=== PATIENT | female | born 1965 | race Hispanic/Latino ===

== ENCOUNTER 2024-06-02 15:44 | Outpatient (CLI) | payer OTHER, SELFPAY ==
--- NOTE | ~2024-06-02 | MM_ITS ---
EXAMINATION: MM screening [facility] BI w teressa HISTORY: Screening TECHNIQUE: Craniocaudal and mediolateral oblique 3-D tomosynthesis images were obtained and synthetic 2-D images were generated. CAD analysis was submitted and interpreted. COMPARISON: 03/24/2017 and dating back to 04/25/2013 BREAST PARENCHYMAL COMPOSITION: There are scattered areas of fibroglandular density. FINDINGS: Punctate calcifications detected bilaterally, left greater than right, stable and benign in appearance. Stable parenchymal pattern without suspicious microcalcifications, architectural distortion, discrete masses or significant asymmetry. IMPRESSION: 1. No mammographic evidence of malignancy. 2. Recommend routine screening mammography in one year. BI-RADS Category 2: Benign finding(s). Reviewed, dictated and finalized at location A. APPROVER
== END 2024-06-02 15:45 | disposition home or self-care (01) ==
LOC: ANHIMG 15:47
PROVIDERS: Visit Provider Physician Assistant
DX: Z12.31 Encounter for screening mammogram for malignant neoplasm of breast (principal)
CPT/HCPCS: 77063; 77067

== ENCOUNTER 2024-09-23 13:10 | Outpatient (CLI) | payer OTHER, SELFPAY ==
--- NOTE | ~2024-09-23 | MMUS_ITS ---
EXAMINATION: US breast RT complete, MM diagnostic dayanna RT w teressa HISTORY: Palpable right breast abnormality TECHNIQUE: Additional 3-D tomosynthesis images of the right breast were performed and synthetic 2-D i mages were generated. CAD analysis was submitted and interpreted. High resolution complete right ryan st ultrasound was performed. COMPARISON: No prior studies for comparison. BREAST PARENCHYMAL COMPOSITION: Not dense: There are scattered areas of fibroglandular density. FINDINGS: MAMMOGRAPHIC FINDINGS: There is a subareolar mass of the right breast. There are no suspicious calcifications or architectur al distortion. ULTRASOUND: Limited right breast ultrasound: At 9:00, 4 cm from the nipple there is a 5 mm cyst. In the subareola r location there is a 1.4 cm simple cyst. No suspicious masses to suggest malignancy. IMPRESSION: 1. No evidence for malignancy in the right breast. Benign findings. 2. Routine yearly screening mammogram and regular clinical breast examination are recommended. BI-RADS Category 2: Benign finding(s). Reviewed, dictated and finalized at location B. IMPRESSION: 1. No evidence for malignancy in the right breast. Benign findings. 2. Routine yearly screening mammogram and regular clinical breast examination a re recommended. BI-RADS Category 2: Benign finding(s).
--- OUTSIDE RECORDS SUMMARY | 2024-09-23 13:17 | XMS_ITS ---
Author Organization Formerly [facility], [facility]–[address] Address [address] [place] [address] Care Team Providers Care Tailings Man Name Role Phone Robyn Shen Primary Care Provider Chanel Bhatia Unavailable [phone] Allergies No Known Allergies REASON FOR VISIT f/u Medications Medication SIG (Take, Route, Frequency, Duration) Notes Start Date End Date Status lamoTRIgine 100 MG TAKE 1 TABLET BY MALKA TH EVERY DAY AT BEDTIME. DISCONTINUE IF RASH OCCURS. for 30 days Active QUEtiapine Fumarate 200 MG TAKE 1 TABLET BY MOUTH EVERY DAY AT BEDTIME for 30 Active Wellbutrin XL 150 MG 2 tablets in AM Ora lly Once a day for 30 days Active lamoTRIgine 100 MG 1 tablet Orally Once daily at bedtime (DC is rash) for 30 days Active QUEtiapine Fumarate 200 MG 1 tablet at b edtime Orally Once a day for 30 days Active Wellbutrin XL 150 MG 2 tablets in the mo rning Orally Once a day for 30 days Active Social History Tobacco Use: Social History Observation Description Date Details (start date - stop date) Never Smoker NA - NA Sex Assigned At : Social History Observation Description Sex Assigned At Female Dont use, Tobacco Use/Smoking Question Answer Notes Are you a nonsmoker PRAPARE Question Answer Notes Date Completed/Updated: 01/21/2023 What is your current housing situation? I do not have housing (staying with others, in a hotel, in a half-way, living outside on the street, on a beach, or in a park) Are you worried about losing your housing? 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 Check all that apply I do not have problems meeting my needs Has lack of transportation k ept you from medical appointments, meetings, work or from getting things needed for daily living? No How often do you see or talk to people that you care about and feel close to? (For example: talking to friends on the phone, visiting friends or family, going to evangelical or club meetings) 3 to 5 times a week How stressed are you? Stress is when someone feels tense, nervous, anxious, or can\t sleep at night because their mind is troubled Somewhat In the past year have you sp ent more than 2 nights in a row in a retirement, detention, usp center, or juvenile correctional facility? Yes What was your release date? 01/05/2023 Are you a refugee? No What country are you from? [place] Do you feel physically and e motionally safe where you currently live? Yes In the past year, have you b een afraid of your partner or ex-partner? No PRAPARE Score: 9 Section Notes: Reviewed PDMP Vital Signs Height 57 in 10/14/2023 Weight 150 lb 2 oz lbs 10/14/2023 BMI 32.48 kg/m2 10/14/2023 Blood pressure systolic 116 mm Hg 10/14/19 24 Blood pressure diastolic 82 mm Hg 024 Heart Rate 88 /min 10/14/2023 Oximetry 98 % 10/14/2023 Encounters Encounter Location Date Provider Diagnosis [address] [place] [address] 10/14/2023 Chanel Bhatia Nutritional counseling Z71.3 and Bipolar 1 disorder F31.9 Assessments Encounter Date Diagnosis (ICD Code) Assessment Notes Treatment Notes Treatment Clinical Notes Section Notes 10/14/2023 Nutritional counseling (ICD-10 - Z71.3) 10/14/2023 Bipolar 1 disorder (ICD-10 - F31.9) Antipsychotics education - reviewed side effects which may include metabolic syndrome, movement disorders (EPS/extrapyramidal symptoms & TD/Tardive dyskinesia) - potentially permanent movement abnormalities, NMS/neuroleptic malignant syndrome (high fever, very rigid muscles, and rapid heartbeat - potentially fatal), sedation, and cardiac rhythm abnormalities. 10/14/2023 Other Patient was edu cated on diagnosis and symptoms. Discussed the treatment plan, patient is agreeable and accepting of treatment plan. Patient denies further questions or concerns currently. Discussed sleep hygiene and caffeine intake. Encouraged to improve diet, get regular exercise, daily relaxation, and work on managing stress levels.Return to clinic 8 weeks.Labs are up to date. Encouraged counseling.The Patient/Guardian is aware of the need to contact the office or return for an earlier appointment if any problems or concerns arise. May also contact the 24-hour crisis hotline (R), refer to the closest emergency room or call 911 if new symptoms arise of existing symptoms worsen; the Patient/Guardian is aware that this would apply to symptoms such as: suicidal ideation, homicidal ideation, high risk behaviors, manic symptoms, psychotic symptoms, physical symptoms, or any other symptoms that may be dangerous to self or others.Greater than 50% of time spent on coordination and counseling where psychopharmacology as well as psychotherapeutic interventions were discussed along with review of treatments in the past.Patient/Guardian was educated about treatments including benefits and risks, alternatives, potential medication side effects, black box warning, and risks of failure if not treated. The Patient/Guardian asked appropriate questions, appeared to understand the answers, and decided to accept the treatment and continue being followed.Discussed the importance of compliance with medications due to the risk of relapse of symptoms.Discussed the risks of taking psychotropic medication when combined with substance use/abuse and/or drinking alcohol. Plan Of Treatment Medication Medication Name Sig Start Date Stop Date Notes lamoTRIgine 100 MG 1 tablet Orally Once daily at bedtime (DC is rash) for 30 days QUEtiapine Fumarate 200 MG 1 tablet at b edtime Orally Once a day for 30 days Wellbutrin XL 150 MG 2 tablets in the mo rning Orally Once a day for 30 days Treatment Notes Assessment Notes Bipolar 1 disorder Antipsychotics education - reviewed side effects which may include metabolic syndrome, movement disorders (EPS/extrapyramidal symptoms & TD/Tardive dyskinesia) - potentially permanent movement abnormalities, NMS/neuroleptic malignant syndrome (high fever, very rigid muscles, and rapid heartbeat - potentially fatal), sedation, and cardiac rhythm abnormalities. Other Patient was educated on diagnosis and symptoms. Discussed the treatment plan, patient is agreeable and accepting of treatment plan. Patient denies further questions or concerns currently. Discussed sleep hygiene and caffeine intake. Encouraged to improve diet, get regular exercise, daily relaxation, and work on managing stress levels.Return to clinic 8 weeks.Labs are up to date. Encouraged counseling.The Patient/Guardian is aware of the need to contact the office or return for an earlier appointment if any problems or concerns arise. May also contact the 24-hour crisis hotline (R), refer to the closest emergency room or call 911 if new symptoms arise of existing symptoms worsen; the Patient/Guardian is aware that this would apply to symptoms such as: suicidal ideation, homicidal ideation, high risk behaviors, manic symptoms, psychotic symptoms, physical symptoms, or any other symptoms that may be dangerous to self or others.Greater than 50% of time spent on coordination and counseling where psychopharmacology as well as psychotherapeutic interventions were discussed along with review of treatments in the past.Patient/Guardian was educated about treatments including benefits and risks, alternatives, potential medication side effects, black box warning, and risks of failure if not treated. The Patient/Guardian asked appropriate questions, appeared to understand the answers, and decided to accept the treatment and continue being followed.Discussed the importance of compliance with medications due to the risk of relapse of symptoms.Discussed the risks of taking psychotropic medication when combined with substance use/abuse and/or drinking alcohol. 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 W as hospitalized N o.? D epression Screening: PHQ-9 L ittle interest or pleasure in doing things S everal days, F eeling down, depressed, or hopeless S everal days, T rouble falling or staying asleep, or sleeping too much N ot at all, F eeling tired or having little energy N ot at all, P oor appetite or overeating N ot at all, F eeling bad about yourself or that you are a failure, or have let yourself or your family down S everal days, T rouble concentrating on things, such as reading the newspaper or watching television S , M oving or speaking so slowly that other people could have noticed; or the opposite, being so fidgety or restless that you have been moving around a lot more than usual N ot at all, T houghts that you would be better off or of hurting yourself in some way N ot at all, T otal Score 4 , I nterpretation M inimal Depression. I ntervention D epression Screening Findings P ositive, F ollow-Up for Depression N o Referral necessary, patient involved in behavioral health treatment .. S creening: [place] Suicide Severity Rating Scale (LF) D o you want to initiate with S creener form, 1 . Wish to be : Have you wished you were or wished you could go to sleep and not wake up? N o, 2 . Suicidal Thoughts: Have you actually had any thoughts of killing yourself? N o, 6 . Suicide Behaviour: Have you ever done anything,started to do anything, or prepared to end your life? N o, I nterpretation: L ow Risk. P reventative Health and Wellness follow-up: . C SSRS Interpretation and Follow Up Plan: CSSRS Interpretation and Follow Up PlanCSSRS Interpretation and Follow Up PlanCSSRS Interpretation and Follow Up Plan. C onstitutional: Chief Complaint: Medication management HPI: Martina is a 58 y/o female that presents to the office today for her appt. She was last seen on 07/22/2023 at which time we continued Seroquel, Wellbutrin, and Lamictal. I am doing better. She got a new job working for [employer]. It is 6 minutes from her house, and it pays the bills. She is renting a place with a single mother and her daughter. She is looking for a new place of her own. Her roommate works nights and she likes to blare music. She is sleeping well. She is also drinking sleepy time tea with honey. Appetite is It is okay. She is no longer in therapy with Marisela as she got new insurance that she does not take. She has not heard from her ex-. Her oldest daughter friended her on FB and now they are talking a little bit. Her youngest daughter is now opening her messages. She has not responded. She denies any gabriella or SIB/SI/HI/AVH. No impulsivity or risky behavior. She admits that her depression is not every day anymore. She reports anxiety is sometimes but not very often. She is in contact with her parents. Her brother and sister have not talked to her in 4 years. P HQ-9 on 07/22/23 was 2. Today's PHQ-9 is 4.Previous Diagnosis: Depression, Bipolar DisorderGoals: Find a place of her own.Coping strategies: Watching TV. S ocial Activities/Hobbies: WorkingDrugs/ETOH/nicotine: DeniesTherapy: She is no longer in therapy. M edications effective: YesMedication Adherence: YesSide effects: DeniesPast medications: UnsureSleep: Sometimes I sleep good sometimes I wake up. She is also drinking sleepy time tea with honey.Appetite: It is okay. Depression: Sometimes, but not at much, I am working on it. A nxiety/Panic attacks: Sometimes but not very often. A nger/Irritability: Denies H allucinations/Paranoia: DeniesCurrent Suicidal ideation: DeniesPast suicidal ideation: DeniesHomicidal ideation: DeniesMedical concerns: Does not have PCPHospitalizations/medication changes by other providers: Hospitalized at [facility] in September 2022 for depression.Hx of multiple hospitalizationsSupport system: FriendsLabs: Up to date. * ROS: P sych ROS: Constitutional D enies. R espiratory D enies. C ardiovascular D enies. G I D enies. M usculoskeletal D enies. N eurological?Denies. * PSYCH ROS2: Admits E levated mood symptoms. A dmits m ood swings. T houghts of self harm D enies. D enies H omicidal thoughts. A dmits A nxiety. D enies A uditory/visual hallucinations. D enies D elusions. A dmits D epressed mood. A dmits D ifficulty sleeping. D enies L oss of appetite. A dmits?Stressors. D enies S ubstance abuse. D enies S uicidal thoughts. ? * Medical History: * Surgical History: c esarean section 20yrs * Hospitalization/Major Diagno stic Procedure: i npatient psychiatric hospitalization 2022 * Family History: M other: alive. 2 daughter(s) - healthy. . * Social History: P rimary Social History: L iving Arrangement L iving Arrangement: Independent Living Lives with friends (rent room),Is this a supportive environment? Yes .. A lcohol Use A lcohol Use Frequency: N ever. Illicit Substance Usage I llicit Substance Usage: N o. E mployment Status E mployment Status: E mployed [employer]. S ocial Determinants: P RAPARE D ate Completed/Updated: 0 01/21/2023, W hat is your current housing situation? I do not have housing (staying with others, in a hotel, in a half-way, living outside on the street, on a beach, or in a park), A re you worried about losing your housing? Y es, W hat is your current work situation? P art time or temporary work, I n the past year, have you or any family members you live with been unable to get any of the following when it was really needed? Check all that apply I do not have problems meeting my needs, H as lack of transportation kept you from medical appointments, meetings, work or from getting things needed for daily living? N o, H ow often do you see or talk to people that you care about and feel close to? (For example: talking to friends on the phone, visiting friends or family, going to evangelical or club meetings) 3 to 5 times a week, H ow stressed are you? Stress is when someone feels tense, nervous, anxious, or can\t sleep at night because their mind is troubled S omewhat, I n the past year have you spent more than 2 nights in a row in a retirement, detention, usp center, or juvenile correctional facility? Y es, W hat was your release date? 0 01/05/2023, A re you a refugee? N o, W hat country are you from[place], D o you feel physically and emotionally safe where you currently live? Y es, I n the past year, have you been afraid of your partner or ex-partner? N o, P RAPARE Score: 9 . T obacco Use: D ont use, Tobacco Use/Smoking A re you a n onsmoker. M iscellaneous: M ethod of learning P referred method of learning: D iscussion. R eviewed PDMP. * Medications: T akingQUEtiapine Fumarate 200 MG Tablet TAKE 1 TABLET BY MOUTH EVERY DAY AT BEDTIME lamoTRIgine 100 MG Tablet TAKE 1 TABLET BY MOUTH EVERY DAY AT BEDTIME. DISCONTINUE IF RASH OCCURS. Wellbutrin XL 150 MG Tablet Extended Release 24 Hour 2 tablets in AM Orally Once a day Medication List reviewed and reconciled with the patientTaking QUEtiapine Fumarate 200 MG Tablet TAKE 1 TABLET BY MOUTH EVERY DAY AT BEDTIME Taking lamoTRIgine 100 MG Tablet TAKE 1 TABLET BY MOUTH EVERY DAY AT BEDTIME. DISCONTINUE IF RASH OCCURS. Taking Wellbutrin XL 150 MG Tablet Extended Release 24 Hour 2 tablets in AM Orally Once a day Medication List reviewed and reconciled with the patient * Allergies: N .K.D.A.no[Allergies Verified] Objective: * Vitals: I nitials: krs, Wt:150 lb 2 oz, Ht: 57, BMI:32.48, BP:116/82, HR:88, Oxygen sat %:98, LMP: iza, Pain scale:0. * Examination: G eneral Examination: PSYCH: f ull range of affect/positive mood, good eye contact , speech clear , no auditory or visual hallucinations , alert, oriented x4 , cognitive function intact , cooperative with exam judgement and insight fair , appears stated age , normal gait , denies any current thoughts/plans of suidicial/homicidal ideation , No evidence of EPS or tardive dyskinesia. Mental Status Exam P rotective Factors C hildren, Coping Skills, Cultural/Latter Day Ideology, Denies Intent/Desire/Means. Assessment: * Assessment: 1. N utritional counseling - Z71.3 (Primary) 2 . B ipolar 1 disorder - F31.9 Plan: * Treatment: 2. O thers Notes: Patient was educated on diagnosis and symptoms. Discussed the treatment plan, patient is agreeable and accepting of treatment plan. Patient denies further questions or concerns currently. Discussed sleep hygiene and caffeine intake. Encouraged to improve diet, get regular exercise, daily relaxation, and work on managing stress levels.Return to clinic 8 weeks.Labs are up to date. Encouraged counseling.The Patient/Guardian is aware of the need to contact the office or return for an earlier appointment if any problems or concerns arise. May also contact the 24-hour crisis hotline ([facility]), refer to the closest emergency room or call 911 if new symptoms arise of existing symptoms worsen; the Patient/Guardian is aware that this would apply to symptoms such as: suicidal ideation, homicidal ideation, high risk behaviors, manic symptoms, psychotic symptoms, physical symptoms, or any other symptoms that may be dangerous to self or others.Greater than 50% of time spent on coordination and counseling where psychopharmacology as well as psychotherapeutic interventions were discussed along with review of treatments in the past.Patient/Guardian was educated about treatments including benefits and risks, alternatives, potential medication side effects, black box warning, and risks of failure if not treated. The Patient/Guardian asked appropriate questions, appeared to understand the answers, and decided to accept the treatment and continue being followed.Discussed the importance of compliance with medications due to the risk of relapse of symptoms.Discussed the risks of taking psychotropic medication when combined with substance use/abuse and/or drinking alcohol. * Procedure Codes: 3 008F BODY MASS INDEX [id number] MEDICAL NUTRITION, INDIV, [id number] TOBACCO NON-USER * Preventive Medicine: Counseling: C are goal follow-up plan: B ME management provided Y Dong castaneda Normal BMI Follow-up L ifmadelynyle education regarding diet. * Follow Up: 2 Months (Reason: Medication management - office visit, not telehealth) * * Sign off status: Completed true * Provider: Zaria Bhatia, MSN, PRECISION OPTICS TECHNICIAN-BC, PMHNP-BC Date: 0 10/14/2023 Generated for Poonam talamantes/Mandy/eTransmitting on: 0 09/23/2024 01:17 PM CDT History and Physical Notes * HPI (History of Present Illness) Category Sub-Category Detail Notes Category Not es Interim History Was hospitalized No Emergency room visit No Depression Screening PHQ-9 Little inte rest or pleasure in doing things: Several days Feeling down, depressed, or hopeless: Se veral days Trouble falling or staying asleep, or sl eeping too much: Not at all Feeling tired or having little energy: N ot at all Poor appetite or overeating: Not at all Feeling bad about yourself o r that you are a failure, or have let yourself or your family down: Several days Trouble concentrating on thi ngs, such as reading the newspaper or watching television: Several days Moving or speaking so slowly that other people could have noticed; or the opposite, being so fidgety or restless that you have been moving around a lot more than usual: Not at all Thoughts that you would be b beulah off or of hurting yourself in some way: Not at all Total Score: 4 Interpretation: Minimal Depression Intervention Depression Screening Findings: P ositive Follow-Up for Depression: No Referral necessary, patient involved in behavioral health treatment . Constitutional Chief Complaint: Medication management HPI: Martina is a 58 y/o female that presents to the office today for her appt. She was last seen on 07/22/2023 at which time we continued Seroquel, Wellbutrin, and Lamictal. I am doing better. She got a new job working for [employer]. It is 6 minutes from her house, and it pays the bills. She is renting a place with a single mother and her daughter. She is looking for a new place of her own. Her roommate works nights and she likes to blare music. She is sleeping well. She is also drinking sleepy time tea with honey. Appetite is It is okay. She is no longer in therapy with Marisela as she got new insurance that she does not take. She has not heard from her ex-. Her oldest daughter friended her on FB and now they are talking a little bit. Her youngest daughter is now opening her messages. She has not responded. She denies any gabriella or SIB/SI/HI/AVH. No impulsivity or risky behavior. She admits that her depression is not every day anymore. She reports anxiety is sometimes but not very often. She is in contact with her parents. Her brother and sister have not talked to her in 4 years. PHQ-9 on 07/22/23 was 2. Today's PHQ-9 is 4.Previous Diagnosis: Depression, Bipolar DisorderGoals: Find a place of her own.Coping strategies: Watching TV. Social Activities/Hobbies: WorkingDrugs/ETOH/nicotine: DeniesTherapy: She is no longer in therapy. Medications effective: YesMedication Adherence: YesSide effects: DeniesPast medications: UnsureSleep: Sometimes I sleep good sometimes I wake up. She is also drinking sleepy time tea with honey.Appetite: It is okay. Depression: Sometimes, but not at much, I am working on it. Anxiety/Panic attacks: Sometimes but not very often. Anger/Irritability: Denies Hallucinations/Paranoia: DeniesCurrent Suicidal ideation: DeniesPast suicidal ideation: DeniesHomicidal ideation: DeniesMedical concerns: Does not have PCPHospitalizations/medication changes by other providers: Hospitalized at [facility] in September 2022 for depression.Hx of multiple hospitalizationsSupport system: FriendsLabs: Up to date. Screening [place] Suicide Severity Rating Scale (LF) Do you want to initiate with: Screener form 1. Wish to be : Have you wished you were or wished you could go to sleep and not wake up?: No 2. Suicidal Thoughts: Have you actually had any thoughts of killing yourself?: No 6. Suicide Behavior Question: Have you ever done anything,started to do anything, or prepared to end your life?: No Interpretation:: Low Risk Preventative Health and Wellness follow-up . Examination Category Sub-Category Detail Notes Category Not es General Examination PSYCH: full range o f affect/positive mood, good eye contact , speech clear , no auditory or visual hallucinations , alert, oriented x4 , cognitive function intact , cooperative with exam judgement and insight fair , appears stated age , normal gait , denies any current thoughts/plans of suidicial/homicidal ideation , No evidence of EPS or tardive dyskinesia Mental Status Exam Protective Factors: Children, Coping Skills, Cultural/Latter Day Ideology, Denies Intent/Desire/Means
--- OUTSIDE RECORDS SUMMARY | 2024-09-23 13:17 | XMS_ITS | Continuity of Care Document ---
Author Organization [facility] Address [address] [place] [address] Phone Care Team Providers Care Radio Station Audio Engineer Name Role Phone Kathy Walker Unavailable Unavailable Medications Medication Instructions Dosage Effective Dates (start - stop) Status Comments Effexor XR 37.5 mg 24 hr Cap take 1 Capsule (37.5MG) by oral route every day with food 37.5 MG - Active replaces 75 mg rx trazodone 50 mg Tab take 1 Tablet (50MG) by ORAL route every bedtime after meals 50 MG - Active Procedures Procedure Date Periodontal Scaling & Root Planing, 4+ t eeth, per quadrant Periodontal Scaling & Root Planing, 4+ t eeth, per quadrant Oral hygiene instruction Comprehensive Oral Evaluation-New/Est Pt Intra-Oral - Complete Series Of Radiogra phic Images Periodontal Risk Assessment Oral Cancer Risk Assessment Dental Panoramic Radiographic Image Consult [facility] Caries Risk Assess & Doc High Risk Apr-0 Voided Encounter Periodontal Maintenance Certified Translation Or Sign-lang Svcs Online Dental Bitewings Radiographic, Four Imag es Periodic Oral Evaluation-Established Pt Perio Re-evaluation Treatment Plan Completed Pt To Be Place On Recall Resin one surface-anterior Fe Resin one surface-anterior Resin one surface-anterior Resin one surface-anterior Periodontal Scaling & Root Planing, 4+ t eeth, per quadrant Periodontal Scaling & Root Planing, 4+ t eeth, per quadrant Voided Encounter Periodontal Scaling & Root Planing, 4+ t eeth, per quadrant Periodontal Scaling And Root Planing- 1- 3 Teeth Per Quadrant Comprehensive Oral Evaluation-New/Est Pt Intra-Oral - Complete Series Of Radiogra phic Images Dental Panoramic Radiographic Image Resin Composite, 1 Surface, Posterior Ju Treatment Plan Completed Pt To Be Place On Recall Voided Encounter Resin Composite, 1 Surface, Posterior Ap r- Dental Bitewings Radiographic, Four Imag es Oral hygiene instruction Periodontal Maintenance Periodic Oral Evaluation-Established Pt Caries Risk Assess & Doc High Risk Aug--2017 Resin Composite, 2 Surfaces, Posterior F Caries Risk Assess & Doc High Risk Feb-2 -2017 Resin Composite, 1 Surface, Posterior Ap r--2016 Debridement, Full Mouth Oral hygiene instruction Comprehensive Oral Evaluation 7 Dental Bitewings Radiographic, Four Imag es Extraction erupted tooth or exposed root Periodont scaling & root planing, 4+ riley th, per qu Periodont scaling & root planing, 4+ riley th, per qu Periodic oral evaluation Periodont scaling & root planing, 4+ riley th, per qu Periodont scaling & root planing, 4+ riley th, per qu Dental Bitewings Radiographic, Four Imag es Dental prophylaxis adult Comprehensve oral evaluation Amalgam one surface Amalgam two surfaces Periodont scaling & root planing, 4+ riley th, per qu Local Anesthesia - Pain Control 013 Periodic oral evaluation Periodont scaling & root planing, 4+ riley th, per qu Local Anesthesia - Pain Control 013 Periodont scaling & root planing, 4+ riley th, per qu Local Anesthesia - Pain Control 013 Local Anesthesia - Pain Control 013 Periodont scaling & root planing, 4+ riley th, per qu Dental bitewings two films Dental prophylaxis adult Periodic oral evaluation IPI-OB-M/S OFFICE 45-50 MIN COLLECTION OF VENOUS BLOOD BY VENIPUNCTU RE OFFICE/OUTPATIENT VISIT, EST OFFICE/OUTPATIENT VISIT, EST [facility]/S OFFICE 45-50 MIN OFFICE/OUTPATIENT VISIT, EST [facility]-OB-M/S OFFICE 45-50 MIN PSYCHIATRIC DIAGNOSTIC INTERVIEW VILMA RAMÍREZ Voided Encounter IPI-OB-M/S OFFICE 45-50 MIN IPI-OB-M/S OFFICE 45-50 MIN IPI-OB-M/S OFFICE 45-50 MIN Comprehensive community support services , per 15 minutes OFFICE OUTPT EST 25 MIN Dental prophylaxis adult Topical fluor w/o prophy adult 11 Oral hygiene instruction OFFICE OUTPT EST 25 MIN Comprehensive community support services , per 15 minutes Comprehensve oral evaluation Dental bitewings four films Debridement, Full Mouth Oral hygiene instruction IPI-OB-M/S OFFICE 45-50 MIN Comprehensive community support services , per 15 minutes OFFICE/OUTPATIENT VISIT, EST FAMILY PSYCHOTHERAPY (CONJOINT PSYCHOTHE RAPY) (WITH PATIENT PRESENT) NONINVASIVE EAR OR PULSE OXI METRY FOR OXYGEN SATURATION; SINGLE DETERMINATION OFFICE OUTPT EST 25 MIN Comprehensive community support services , per 15 minutes Comprehensive community support services , per 15 minutes IPI-OB-M/S OFFICE 45-50 MIN IPI-OB-M/S OFFICE 45-50 MIN Comprehensive community support services , per 15 minutes Comprehensive community support services , per 15 minutes OFFICE OUTPT EST 25 MIN IPI-OB-M/S OFFICE 45-50 MIN IPI-OB-M/S OFFICE 45-50 MIN IPI-OB-M/S OFFICE 45-50 MIN IPI-OB-M/S OFFICE 45-50 MIN OFFICE/OUTPATIENT VISIT, EST COLLECTION OF VENOUS BLOOD BY VENIPUNCTU RE IPI-OB-M/S OFFICE 45-50 MIN FAMILY PSYCHOTHERAPY (CONJOINT PSYCHOTHE RAPY) (WITH PATIENT PRESENT) FAMILY PSYCHOTHERAPY (CONJOINT PSYCHOTHE RAPY) (WITH PATIENT PRESENT) OFFICE/OUTPATIENT VISIT, [facility] Voided Encounter IPI-OB-M/S OFFICE 45-50 MIN PSYCHIATRIC DIAGNOSTIC INTERVIEW EXAMINA TION IPI-OB-M/S OFFICE 45-50 MIN Advance Directives Directive Yes / No Effective Date File Name No Information Encounters Encounter Description Practice Location Reason(s) For Visit Diagnoses Date Provider Providers Copied on Encounter [facility] [address], [place], [place], [address] , [place] tel: [phone] [facility] Chronic periodontitis , generalized, moderateEncou nter for other specified prophylactic measures 5 Denise Chavez. [address], [place], [place], [address]. tel:[phone] [facility], [address], [place], [place], [address] , [place] tel: [phone] [facility] Encounter for dental exam and cleaning w abnormal findings 5 Denise Chavez. [address], [place], [place], [address]. tel:[phone] Referring Provider: Horacio Hall, [address], [place], [address] . tel:[phone] [facility], [address], [place], [place], [address] , [place] tel:[phone] [facility] No Information 5 Denise Chavez. [address], [place], [place], [address]. tel:[phone] Referring Provider: Aubree Kamara, [address], [place], [address] . tel:[phone] [facility], [address], [place], [place], [address] , [place] tel: [phone] [facility] Encounter for dental exam and cleaning w abnormal findings No Information Referring Provider: Horacio Hall, [address], [place], [address] . tel:[phone] [facility], [address], [place], [place], [address] , [place] tel:[phone] [facility] Encounter for dental exam and cleaning w abnormal findings No Information Referring Provider: Horacio Hall [address], [place], [address] . tel:[phone] [facility], [address], [place], [place], [address] , [place] tel:[phone] [facility] Encounter for dental exam and cleaning w abnormal findingsEncou nter for dental exam and cleaning w/o abnormal findings 1 No Information Referring Provider: Horacio Hall [address], [place], [address] . tel:[phone] [facility], [address], [place], [address] , [place] tel:[phone] [facility] Encounter for dental exam and cleaning w abnormal findings 1 No Information [facility], [address], [place], [place], [address] , [place] tel: [phone] [facility] Encounter for dental exam and cleaning w abnormal findings 1 No Information [facility], [address], [place], [place], [address] , [place] tel: [phone] [facility] Encounter for dental exam and cleaning w abnormal findings 1 No Information [facility], [address], [place], [address] , [place] tel: [phone] [facility] No Information 0 No Information [facility], [address], [place], [address] , [place] tel: [phone] [facility] Encounter for dental exam and cleaning w abnormal findings 0 No Information Referring Provider: Horacio Hall, [address], [place], [address] . tel:[phone] [facility], [address], [place], [address] , [place] tel: [phone] [facility] Encounter for dental exam and cleaning w abnormal findings 0 No Information Referring Provider: Horacio Hall, [address], [place], [address] . tel:[phone] [facility], [address], [place], [place], [address] , [place] tel: [phone] [facility] Encounter for dental exam and cleaning w abnormal findings 0 No Information Referring Provider: Horacio Hall [address], [place], [address] . tel:[phone] [facility], [address], [place], [place], [address] , [place] tel: [phone] [facility] Dental caries on smooth surface penetrating into dentinEncount er for dental exam and cleaning w/o abnormal findings 8 Arsenio Taylor. [address], [place], [place], [address]. tel:[phone] Referring Provider: Brandon Cesar, [address], [place], [address] . tel:[phone] [facility], [address], [place], [address] , [place] tel: [phone] [facility] No Information 8 No Information [facility], [address], [place], [place], [address] , [place] tel: [phone] [facility] Excessive attrition of teeth Sep- 0 8 No Information [facility], [address], [place], [place], [address] , [place] tel: [phone] [facility] Encounter for dental exam and cleaning w abnormal findingsChron ic periodontitis , localized, slight Mar-0 8 Sumit Blunt. [address], [place], [place], [address]. tel:[phone] Referring Provider: Merlene Arana, [address], [place], [address] . tel:[phone] [facility], [address], [place], [place], [address] , [place] tel: [phone] [facility] Dental caries, unspecified Fe 8 No Information [facility], [address], [place], [address] , [place] tel:[phone] [facility] Dental caries, unspecified Sep- 7 Leena Fine. [address], [place], [place], [address], [place]. tel:[phone] Referring Provider: Babatunde Stern, [address], [place], [address] . tel:[phone] [facility], [address], [place], [place], [address] , [place] tel: [phone] [facility] Encounter for dental exam and cleaning w abnormal findings Aug- 7 No Information [facility], [address], [place], [address] , [place] tel: [phone] [facility] Encounter for dental exam and cleaning w abnormal findings Aug-0 7 Leena Babatunde. [address], [place], [address], [place]. tel:[phone] Referring Provider: Babatunde Stern, [address], [place], [address] . tel:[phone] [facility], [address], [place], [address] , [place] tel: [phone] [facility] Dental examination October- 5 Leena Garciaele. [address], [place], [address], [place]. tel:[phone] Referring Provider: Babatunde Stern, [address], [place], [address] . tel:[phone] [facility], [address], [place], [address] , [place] tel: [phone] [facility] Dental examination Aug-3 0 5 No Information [facility], [address], [place], [place], [address] , [place] tel: [phone] [facility] Dental examination 5 No Information [facility], [address], [place], [address] , [place] tel: [phone] [facility] Dental examination 4 No Information [facility], [address], [place], [place], [address] , [place] tel: [phone] [facility] Dental examination 4 No Information [facility], [address], [place], [address] , [place] tel: [phone] [facility] Dental examination 3 No Information [facility], [address], [place], [address] , [place] tel: [phone] [facility] Dental examination 3 No Information [facility], [address], [place], [place], [address] , [place] tel: [phone] [facility] Dental examination 3 No Information [facility], [address], [place], [address] , [place] tel: [phone] [facility] Dental examination 3 No Information [facility], [address], [place], [address] , [place] tel: [phone] [facility] Dental examination 3 No Information [facility], [address], [place], [address] , [place] tel: [phone] [facility] Dental examination 2 No Information [facility], [address], [place], [place], [address] , [place] tel: [phone] [facility] No Information 2 No Information OFFICE/OUTPATI ENT VISIT, EST [facility], [address], [place], [place], [address] , [place] tel: [phone] [facility] medication (chief complaint) Major depressive affective disorder, recurrent episode, unspecified degree 2 Cornel Casisdy. [address], [place], [place], [address], [place]. tel:[phone] OFFICE/OUTPATI ENT VISIT, EST [facility], [address], [place], [place], [address] , [place] tel: [phone] [facility] depression (chief complaint) No Information 2 Cornel Cassidy. [address], [place], [place], [address], [place]. tel:[phone] [facility], [address], [place], [place], [address] , [place] tel: [phone] [facility] Bipolar disorder, unspecified 2 No Information OFFICE/OUTPATI ENT VISIT, EST [facility], [address], [place], [place], [address] , [place] tel: [phone] [facility] No Information 0 2 Cornel Cassidy. [address], [place], [place], [address], [place]. tel:[phone] [facility], [address], [place], [place], [address] , [place] tel: [phone] [facility] No Information 0 2 No Information [facility], [address], [place], [address] , [place] tel: [phone] [facility] Major depressive affective disorder, recurrent episode, unspecified degree 0 2 No Information [facility], [address], [place], [place], [address] , [place] tel: [phone] [facility] No Information 1 No Information [facility], [address], [place], [place], [address] , [place] tel: [phone] [facility] No Information 1 No Information [facility], [address], [place], [place], [address] , [place] tel: [phone] [facility] No Information 1 No Information [facility], [address], [place], [address] , [place] tel: [phone] [facility] No Information 0 1 No Information [facility], [address], [place], [place], [address] , [place] tel: [phone] [facility] No Information 1 No Information OFFICE OUTPT EST 25 MIN [facility], [address], [place], [place], [address] , [place] tel: [phone] [facility] rash (chief complaint)a llergies (chief complaint) No Information 1 Cornel Cassidy. [address], [place], [place], [address], [place]. tel:[phone] [facility], [address], [place], [place], [address] , [place] tel: [phone] [facility] Dental examination 1 No Information [facility], [address], [place], [address] , [place] tel: [phone] [facility] Overweight 1 Cornel Cassidy. [address], [place], [place], [address], [place]. tel:[phone] OFFICE OUTPT EST 25 MIN [facility], [address], [place], [place], [address] , [place] tel: [phone] [facility] rash (chief complaint)c ongestion (chief complaint) Chronic maxillary sinusitis 1 Cornel Cassidy. [address], [place], [address], [place]. tel:[phone] [facility], [address], [place], [address] , [place] tel: [phone] [facility] No Information No Information [facility], [address], [place], [place], [address] , [place] tel: [phone] [facility] Dental examination 1 No Information [facility], [address], [place], [address] , [place] tel: [phone] [facility] No Information No Information [facility], [address], [place], [place], [address] , [place] tel: [phone] [facility] No Information No Information OFFICE/OUTPATI ENT VISIT, EST [facility], [address], [place], [address] , [place] tel: [phone] [facility] pain (chief complaint)f ollow up on lab / diagnostic test (chief complaint) Unspecified site of sprain and strain Sep- 1 Cornel Cassidy. [address], [place], [place], [address], [place]. tel:[phone] FAMILY PSYCHOTHERAPY (CONJOINT PSYCHOTHERAPY) (WITH PATIENT PRESENT) [facility], [address], [place], [place], [address] , [place] tel: [phone] [facility] Other and unspecified bipolar disorders, other Apr-2 0 1 No Information OFFICE OUTPT EST 25 MIN [facility], [address], [place], [place], [address] , [place] tel: [phone] [facility] back pain (chief complaint)s hortness of breath (chief complaint)c ough-produc tive (chief complaint)f atigue (chief complaint)v aginal bumps (chief complaint) Chronic maxillary sinusitis Aug-2 1 Cornel Cassidy. [address], [place], [place], [address], [place]. tel:[phone] [facility], [address], [place], [place], [address] , [place] tel: [phone] [facility] No Information Mar-2 1 No Information [facility], [address], [place], [place], [address] , [place] tel: [phone] [facility] No Information Mar-1 1 No Information [facility], [address], [place], [place], [address] , [place] tel: [phone] [facility] No Information Mar- 1 No Information [facility], [address], [place], [place], [address] , [place] tel: [phone] [facility] No Information Mar-0 1 No Information [facility], [address], [place], [place], [address] , [place] tel: [phone] [facility] No Information Mar-0 1 No Information [facility], [address], [place], [place], [address] , [place] tel: [phone] [facility] No Information 1 No Information OFFICE OUTPT EST 25 MIN [facility], [address], [place], [place], [address] , [place] tel: [phone] [facility] cough (chief complaint)j oint pain (chief complaint) No Information 1 Cornel Cassidy. [address], [place], [place], [address], [place]. tel:[phone] [facility], [address], [place], [place], [address] , [place] tel: [phone] [facility] No Information 1 No Information [facility], [address], [place], [place], [address] , [place] tel: [phone] [facility] No Information 0 No Information [facility], [address], [place], [address] , [place] tel: [phone] [facility] No Information 0 No Information [facility], [address], [place], [address] , [place] tel: [phone] [facility] No Information 0 No Information OFFICE/OUTPATI ENT VISIT, EST [facility], [address], [place], [place], [address] , [place] tel: [phone] [facility] depression (chief complaint)a nxiety (chief complaint) Nonspecific abnormal toxicological findingsDepre ssive disorder, not elsewhere classified 0 Cornel Cassidy. [address], [place], [place], [address], [place]. tel:[phone] [facility], [address], [place], [place], [address] , [place] tel: [phone] [facility] No Information 0 No Information FAMILY PSYCHOTHERAPY (CONJOINT PSYCHOTHERAPY) (WITH PATIENT PRESENT) [facility], [address], [place], [address] , [place] tel: [phone] [facility] No Information 0 No Information FAMILY PSYCHOTHERAPY (CONJOINT PSYCHOTHERAPY) (WITH PATIENT PRESENT) [facility], [address], [place], [place], [address] , [place] tel: [phone] [facility] No Information 0 No Information OFFICE/OUTPATI ENT VISIT, NEW [facility], [address], [place], [place], [address] , [place] tel: [phone] [facility] depression (chief complaint) Depressive disorder, not elsewhere classified 0 Cornel Cassidy. [address], [place], [address], [place]. tel:[phone] [facility], [address], [place], [place], [address] , [place] tel: [phone] [facility] depression (chief complaint) Depressive disorder, not elsewhere classified 0 Cornel Cassidy. [address], [place], [address], [place]. tel:[phone] [facility], [address], [place], [address] , [place] tel: [phone] [facility] No Information 0 No Information [facility], [address], [place], [place], [address] , [place] tel: [phone] [facility] depression (chief complaint) No Information 0 No Information [facility], [address], [place], [place], [address] , [place] tel: [phone] [facility] Major depressive affective disorder, recurrent episode, unspecified degreeAdjustm ent disorder with anxiety 0 No Information [facility], [address], [place], [address] , [place] tel: [phone] Care Guidelines 1 No Information Shara tavarez, [address], [place], [address] , [place] tel: [phone] Care Guidelines 1 No Information Family History Family Member Type Diagnosis Age At Onset No Information Payers Payer name Insurance type Covered constitution party ID Kayode ramírez(s) Dariela Bolden [facility] [id number] Social History Type Description Quantity Date Captured Comments Sex Female Smoking Status No Information Chief Complaint And Reason For Visit No Information Reason For Referral Reason For Referral No Information Plan Of Treatment Date Type Action Status Goal ALT. Due on due Goal AST. Due on due Goal BMP fasting. Due on 010 due Goal TSH. Due on due Goal Lipid Panel. Due on 011 due Future Order: Lab Order T4, FREE (526), Appointment on: , Sent on: Sent Future Order: Lab Order TSH, 3RD GENERATION (895), Appointment on: , Sent on: Sent History Of Present Illness Encounter Date Complaint History Of Prese nt Illness No Information Functional Status Date Functional Assessmen t No Information Instructions Date Instruction Additional Infor mation No Information Assessments Type Assessment Date No Information Patient Care Teams Name Effective Dates (start - stop) Status Members No Information
--- OUTSIDE RECORDS SUMMARY | 2024-09-23 13:17 | XMS_ITS ---
Author Organization [facility] Address [address] [place] [address] Care Team Providers Care Career Information Specialist Name Role Phone Robyn Shen Primary Care Provider Chanel Bhatia Unavailable [phone] REASON FOR VISIT [facility] Social History Sex Assigned At : Social History Observation Description Sex Assigned At Female Encounters Encounter Location Date Provider Diagnosis [address] [place] [address] 10/13/2023 Chanel Bhatia Plan Of Treatment No Information Progress Notes * Tika SMARTB:11/1965 (58 yo F)Acc No.[id number]:10/13/2023 Patient: Logan MOODY Martina OSHEA :1965 A ge:58 Y S ex:Female Address:[address] [facility] [address] * true * Date: Generated for Poonam talamantes/Mandy/eTransmitting on: 0 09/23/2024 01:17 PM CDT
--- OUTSIDE RECORDS SUMMARY | 2024-09-23 13:17 | XMS_ITS | Referral Summary ---
Author Organization [facility] Address [address] [place] [id number] Care Team Providers Care Factory Maintenance Manager Name Role Phone No, Physician Primary Care Provider [phone] Encounters Date Type Department Care Team Description 07/16/2024 11:49 AM GROUND SUPPORT EQUIPMENT FITTER - 07/16/2024 3:58 PM GROUND SUPPORT EQUIPMENT FITTER Emergency [address] [address] Syncope, unspecified syncope type (Primary Dx) Discharge Disposition: Discharge to home or self care from Last 3 Months Allergies No known active allergies Medications nitrofurantoin monohydrate (MACROBID) 100 mg capsuleIndicatio ns:Urinary Tract/Genitourin gisele Infection Take 1 capsule (100 mg total) by mouth 2 (two) times a day 10 capsule 09/03/2022 Active Social History Tobacco Use Types Packs/Day Years Used Date Smoking Tobacco: Never Assessed Personal Safety Answer Date Recorded Have you ever been in or are you currently in a harmful physical or emotional relationship or is someone making you feel afraid or unsafe? Denies 07/16/2024 Comments Unknown Sex and Gender Information Value Date Recorded Sex Assigned at Not on file Legal Sex Female 6:35 PM GROUND SUPPORT EQUIPMENT FITTER Gender Identity Not on file Sexual Orientation Not on file Last Filed Vital Signs Vital Sign Reading Time Taken Comments Blood Pressure 152/88 07/16/2024 3:54 PM GROUND SUPPORT EQUIPMENT FITTER Pulse 90 07/16/2024 3:54 PM GROUND SUPPORT EQUIPMENT FITTER Temperature 37 C (98.6 F) 07/16/2024 9:50 AM GROUND SUPPORT EQUIPMENT FITTER Respiratory Rate 18 07/16/2024 3:54 PM GROUND SUPPORT EQUIPMENT FITTER Oxygen Saturation 100% 07/16/2024 3:54 PM GROUND SUPPORT EQUIPMENT FITTER Inhaled Oxygen Concentration - - Weight 63.5 kg (140 lb) 09/03/2022 4:08 PM CDT Height 154.9 cm (5' 1 ) 07/16/2024 9:50 AM GROUND SUPPORT EQUIPMENT FITTER Body Mass Index - - Plan of Treatment Not on file Procedures Procedure Name Priority Date/Time Associated Diagnosis Comments CT CHEST PE W CONTRAST ED 2:41 PM GROUND SUPPORT EQUIPMENT FITTER D-DIMER, QUANTITATIVE STAT 07/16/2024 1:46 PM GROUND SUPPORT EQUIPMENT FITTER TROPONIN T HIGH-SENSITIVITY 2-HOUR Timed 07/16/2024 1:46 PM GROUND SUPPORT EQUIPMENT FITTER XR CHEST 1 VIEW ED 07/16/2024 10:52 AM GROUND SUPPORT EQUIPMENT FITTER ECG 12-LEAD STAT 07/16/2024 10:26 AM GROUND SUPPORT EQUIPMENT FITTER EGFR STAT 07/16/2024 10:23 AM GROUND SUPPORT EQUIPMENT FITTER DIFFERENTIAL AUTO STAT 07/16/2024 10: 23 AM GROUND SUPPORT EQUIPMENT FITTER TROPONIN T HIGH-SENSITIVITY SERIES (BASELINE, 2HR, 4HR, 6HR) STAT 07/16/2024 10:23 AM GROUND SUPPORT EQUIPMENT FITTER COMPREHENSIVE METABOLIC PANEL STAT 07/16/2024 10:23 AM GROUND SUPPORT EQUIPMENT FITTER CBC WITH AUTO DIFFERENTIAL STAT 07/16/2024 10:23 AM GROUND SUPPORT EQUIPMENT FITTER INFLUENZA A/B, RSV, AND COVID-19 PCR STAT 07/16/2024 10:23 AM GROUND SUPPORT EQUIPMENT FITTER from Last 3 Months Results * CT Chest PE (CTA) W Contrast (07/16/2024 2:41 PM GROUND SUPPORT EQUIPMENT FITTER) Anatomical Region Laterality Modality Body N/A Computed Tomogra phy 07/16/2024 3:13 PM GROUND SUPPORT EQUIPMENT FITTER Narrative 07/16/2024 3:22 PM GROUND SUPPORT EQUIPMENT FITTER EXAM DESCRIPTION: CT CHEST PE (CTA) W CONTRAST REASON FOR STUDY: Pulmonary embolism (PE) suspected, high prob Pt reports syncopal episode today while working. Pt reports a co worker caught her so she did not fall. Pt reports she did not have breakfast today and just had some unsweetened tea. Pt reports this happened in the past and was told he BP was elevated. No known sx or ca TECHNIQUE: CT angiogram of the chest performed with intravenous contrast using helical scanning technique with dynamic intravenous contrast injection. Reconstructed coronal and sagittal MPR images reviewed. All images stored on PACS. 3D MIP images rendered on scanning unit and reviewed at time of interpretation. Automated exposure control was used as a dose optimization technique for this examination. CONTRAST TYPE/DOSE: 100mL of IOVERSOL 350 MG IODINE/ML INTRAVENOUS SYRINGE injected COMPARISON: 07/16/2024, 09/23/2010 FINDINGS: VASCULATURE: No CT evidence of pulmonary embolism. Normal size of the main pulmonary arteries. No aortic aneurysm or aortic dissection. LUNGS: Mild scattered subsegmental atelectasis in both lungs. No pulmonary parenchymal consolidation or pulmonary edema. No discrete pulmonary nodules. Tracheobronchial tree is within normal limits. PLEURA: No pleural effusion. No pneumothorax. MEDIASTINUM/CHERISE: No identified masses or lymphadenopathy. No supraclavicular lymphadenopathy. The esophagus is within normal limits. HEART: Heart size is normal with no pericardial effusion. AXILLA: No adenopathy. CHEST WALL: There is nodular masslike tissue in the right breast subareolar region measuring 14 x 13 x 13 mm, incompletely characterized on this examination. HARDWARE/LINES/TUBES: None. UPPER ABDOMEN: Small hiatal hernia. There is an indeterminate hypoattenuating region in the posterior right hepatic lobe which is incompletely characterized on this examination given phase of contrast spanning up to 17 mm at slice position 120. There is a hypoattenuating lesion in the anterosuperior spleen measuring 27 mm favored to reflect a benign etiology such as hemangioma/lymphangioma or pseudocyst. MUSCULOSKELETAL: No acute fractures or aggressive osseous lesions. IMPRESSION: 1. No CT evidence of pulmonary embolism. 2. Nodular masslike tissue in the right breast subareolar region measuring 14 x 13 x 13 mm, incompletely characterized on this examination. Clinical correlation is recommended. Dedicated breast imaging is recommended for further evaluation. THIS IS AN ELECTRONICALLY VERIFIED FINAL REPORT 07/16/2024 3:22 PM - Electronically signed by Crystal Anglin M.D. AT T: Report ID: [id number] Reading Location: [id number] Procedure Note Crystal Anglin MD - 07/16/2024 EXAM DESCRIPTION: CT CHEST PE (CTA) W CONTRAST REASON FOR STUDY: Pulmonary embolism (PE) suspected, high prob Pt reports syncopal episode today while working. Pt reports a co workercaught her so she did not fall. Pt reports she did not have breakfast today andjust had some unsweetened tea. Pt reports this happened in the past and wastold he BP was elevated. No known sx or ca TECHNIQUE: CT angiogram of the chest performed with intravenous contrastusing helical scanning technique with dynamic intravenous contrast injection. Reconstructed coronal and sagittal MPR images reviewed. All images storedon PACS. 3D MIP images rendered on scanning unit and reviewed at time of interpretation. Automated exposure control was used as a doseoptimization technique for this examination. CONTRAST TYPE/DOSE: 100mL of IOVERSOL 350 MG IODINE/ML INTRAVENOUSSYRINGE injected COMPARISON: 07/16/2024, 09/23/2010 FINDINGS: VASCULATURE: No CT evidence of pulmonary embolism. Normalsize of the main pulmonary arteries. No aortic aneurysm or aortic dissection. LUNGS: Mild scattered subsegmental atelectasis in both lungs. Nopulmonary parenchymal consolidation or pulmonary edema. No discrete pulmonarynodules. Tracheobronchial tree is within normal limits. PLEURA: No pleural effusion. No pneumothorax. MEDIASTINUM/CHERISE: No identified masses or lymphadenopathy. No supraclavicular lymphadenopathy. The esophagus is within normal limits. HEART: Heart size is normal with no pericardial effusion. AXILLA: No adenopathy. CHEST WALL: There is nodular masslike tissue in the right breastsubareolar region measuring 14 x 13 x 13 mm, incompletely characterized on this examination. HARDWARE/LINES/TUBES: None. UPPER ABDOMEN: Small hiatal hernia. There is an indeterminate hypoattenuating region in the posterior right hepatic lobe which is incompletely characterized on this examination given phase of contrast spanning up to 17 mm at slice position 120. There is a hypoattenuatinglesion in the anterosuperior spleen measuring 27 mm favored to reflect a benign etiology such as hemangioma/lymphangioma or pseudocyst. MUSCULOSKELETAL: No acute fractures or aggressive osseous lesions. IMPRESSION: 1. No CT evidence of pulmonary embolism. 2. Nodular masslike tissue in the right breast subareolar regionmeasuring 14 x 13 x 13 mm, incompletely characterized on this examination. Clinical correlation is recommended. Dedicated breast imaging is recommended for further evaluation. THIS IS AN ELECTRONICALLY VERIFIED FINAL REPORT 07/16/2024 3:22 PM - Electronically signed by Crystal Anglin M.D. AT T: Report ID: [id number] Reading Location: [place] [id number] [place] [address] [address] CT PROCEDURES Final Resu lt * Troponin T high-sensitivity 2-hour (07/16/2024 1:46 PM GROUND SUPPORT EQUIPMENT FITTER) Trop T hs <6 <=14 ng/L Comment: Interpretive Data For further hscTnT resources including the diagnostic algorithm and an aid in interpretation, copy and paste this link: https://nrl.testcatalog.org/show/hsTrop Current Interpretive Data last revised 2020. Trop T hs delta See Comment ng/L JOSE MANUEL HARE Comment:Inappropriate collec tion time to report a delta. Trop T hs pct delta See Comment % JOSE MANUEL Comment:Inappropriate collec tion time to report a delta. Trop T hs interp See Comment JOSE MANUEL HARE Comment:Inappropriate collec tion time to report a delta. Blood 07/16/2024 1:46 PM GROUND SUPPORT EQUIPMENT FITTER 07/16/2024 1:49 PM GROUND SUPPORT EQUIPMENT FITTER us [facility] LAB BLOOD ORDERABLES Final R esult JOSE MANUEL HARE [address] [facility] Department [place] [address] * (ABNORMAL) D-dimer, quantitative (07/16/2024 1:46 PM GROUND SUPPORT EQUIPMENT FITTER) D-Dimer 1,470(H) <=499 ng/mL FEU Comment: Interpretive data FDA approved the D-dimer, in conjunction with a low or moderate pretest probability score, to exclude venous thromboembolic events (VTE) (PE and DVT) in outpatients when the D-dimer result is < 500 ng/ml FEU. Evidence supports using an age-adjusted D-dimer cut-off for outpatients older than 50 (age x 10) to improve specificity without sacrificing sensitivity. Example: age 68, VTE cut-off 680 ng/ml FEU. References; Schouten HT et al. Brit Med J. 2013;346:f2492. Huma MARTINEZ et al. Annals Int Med. 2015;163:701-11. Current interpretive data was last revised on 2019. Blood 07/16/2024 1:46 PM GROUND SUPPORT EQUIPMENT FITTER 07/16/2024 1:49 PM GROUND SUPPORT EQUIPMENT FITTER us Natividad [facility] LAB BLOOD ORDERABLES Final R esult [facility] [address] [facility] Department [place] [address] * XR Chest 1 View (07/16/2024 10:52 AM GROUND SUPPORT EQUIPMENT FITTER) Anatomical Region Laterality Modality Body, Chest N/A Computed Radiogr aphy 07/16/2024 11:4 4 AM GROUND SUPPORT EQUIPMENT FITTER Narrative 07/16/2024 11:45 AM GROUND SUPPORT EQUIPMENT FITTER EXAM DESCRIPTION: XR CHEST 1 VIEW REASON FOR STUDY: syncope Brought in by ems c/o syncope at work. Lasting 10 seconds-caught by co worker. Yesterday started with headache-just not feeling good. Today no headache, throat feels dry. Ems glucose 135 sinus on EKG. TECHNIQUE: Single frontal radiographic view(s) of the chest. COMPARISON: Chest radiograph images without a report dated 09/23/2010. FINDINGS: There is no focal pneumonic consolidation, pleural effusion or pneumothorax. Prominence along the right hilar region is grossly similar when compared to the previous chest radiograph dated 09/23/2010. Degenerative changes in the shoulders. IMPRESSION: No focal pneumonic consolidation. THIS IS AN ELECTRONICALLY VERIFIED FINAL REPORT 07/16/2024 11:45 AM - Electronically signed by Hans TAVARES T: Report ID: [id number] Reading Location: [id number] Procedure Note Hans Hendrickson DO - 07/16/2024 EXAM DESCRIPTION: XR CHEST 1 VIEW REASON FOR STUDY: syncope Brought in by ems c/o syncope at work. Lasting 10 seconds-caught by co worker. Yesterday started with headache-just not feeling good. Today no headache, throat feels dry. Ems glucose 135 sinus on EKG. TECHNIQUE: Single frontal radiographic view(s) of the chest. COMPARISON: Chest radiograph images without a report dated 09/23/2010. FINDINGS: There is no focal pneumonic consolidation, pleural effusion or pneumothorax. Prominence along the right hilar region is grossly similarwhen compared to the previous chest radiograph dated 09/23/2010. Degenerative changes in the shoulders. IMPRESSION: No focal pneumonic consolidation. THIS IS AN ELECTRONICALLY VERIFIED FINAL REPORT 07/16/2024 11:45 AM - Electronically signed by Hans TAVARES T: Report ID: [id number] Reading Location: [id number] Nativid[facility] IMG XR PROCEDURES Final Resu lt * ECG 12 lead (07/16/2024 10:26 AM GROUND SUPPORT EQUIPMENT FITTER) Ventricular Rate EKG/Min 80 BPM [facility] Atrial Rate 80 BPM [facility] DE-Interval (MSEC) 130 ms [facility] QRS-Interval (MSEC) 74 ms [facility] QT-Interval (MSEC) 378 ms [facility] QTc 435 ms [facility] P [place] 50 degrees [facility] R [place] 45 degrees [facility] T [place] 52 degrees [facility] Diagnosis Normal sinus rhythm Normal ECG When compared with ECG of 03-SEP-2022 16:27, No significant change was found Confirmed by MARY ZHENG M.D. ([id number]) on 07/16/2024 8:08:16 PM [facility] 07/16/2024 10:2 6 AM GROUND SUPPORT EQUIPMENT FITTER 07/16/2024 8:08 PM GROUND SUPPORT EQUIPMENT FITTER us Natividad FIGUEREDO ECG ORDERABLES Final Result Performing Organization Address City/[facility]/ZIP Co de Phone Number [facility] * Troponin T high-sensitivity series (baseline, 2hr, 4hr, 6hr) (07/16/2024 10:23 AM GROUND SUPPORT EQUIPMENT FITTER) Trop T hs <6 <=14 ng/L Comment: Interpretive Data For further hscTnT resources including the diagnostic algorithm and an aid in interpretation, copy and paste this link: https://nrl.testcatalog.org/show/hsTrop Current Interpretive Data last revised 2020. Blood 07/16/2024 10:2 3 AM GROUND SUPPORT EQUIPMENT FITTER 07/16/2024 10:26 AM GROUND SUPPORT EQUIPMENT FITTER Natividad FIGUER[facility]O LAB BLOOD ORDERABLES Final R esult Performing Organization Address City/[facility] Co de Phone Number JOSE MANUEL [address] [facility] Department [place] [address] * Influenza A/B, RSV, and COVID-19 PCR Nasopharyngeal (07/16/2024 10:23 AM GROUND SUPPORT EQUIPMENT FITTER) [facility] COVID-19 RNA Negative Negative Influenza A RNA Negative Negative [facility] Influenza B RNA Negative Negative [facility] RSV RNA Negative Negative [facility] Comment: Interpretive data: Testing performed by [facility]. This test is performed using the Coaxis Xpert Xpress CoV-2/Flu/RSV plus assay. This is a multiplex, real-time reverse transcriptase PCR assay intended for the qualitative detection of nucleic acid from SARS-CoV-2, influenza A, influenza B, and respiratory syncytial virus. This assay has been cleared by the [place] Food and Drug administration. The performance characteristics have been verified by the [facility]. Results must be considered in the clinical context, and a negative result does not rule out infection. Interpretive Data last revised 2023 Nasopharyngeal 07/16/2024 10 :23 AM GROUND SUPPORT EQUIPMENT FITTER 07/16/2024 10:26 AM GROUND SUPPORT EQUIPMENT FITTER Narrative JOSE MANUEL - 07/16/2024 11:24 AM GROUND SUPPORT EQUIPMENT FITTER Is the Patient experiencing symptoms consistent with COVID?->Yes [facility] LAB MICROBIOLOGY - GENERAL O RDERABLES Final Result Performing Organization Address [facility] Co de Phone Number JOSE MANUEL [address] [place] [address] * (ABNORMAL) eGFR (07/16/2024 10:23 AM GROUND SUPPORT EQUIPMENT FITTER) eGFR 45(L) >=60 mL/min/1. 73 m2 Comment: Interpretive Data Reference Interval Normal >/= 90 mL/min/1.73m2 Mildly decreased* 60 - 89 mL/min/1.73m2 Mildly to moderately decreased 45 - 59 mL/min/1.73m2 Moderately to severely decreased 30 - 44 mL/min/1.73m2 Severely decreased 15 - 29 mL/min/1.73m2 Kidney Failure < 15 mL/min/1.73m2 *Relative to young adult level Estimated glomerular filtration rate is determined by the 2020 CKD-EPI equation recommended by the National Kidney Foundation (A Unifying Approach to GFR Estimation: Recommendations of the NKF-ASK Task Force on Reassessing the Inclusion of Race in Diagnosing Kidney Disease, JASN 2020). The CKD-EPI equation should not be used for patients with unstable renal function and has not been validated in children and those over 70. Current interpretive data was last reviewed 2021. Blood 07/16/2024 10:2 3 AM GROUND SUPPORT EQUIPMENT FITTER 07/16/2024 10:26 AM GROUND SUPPORT EQUIPMENT FITTER Natividad FIG[facility] LAB BLOOD ORDERABLES Final R esult Performing Organization Address [facility] Co de Phone Number JOSE MANUEL [address] [place] [address] * (ABNORMAL) Differential, auto (07/16/2024 10:23 AM GROUND SUPPORT EQUIPMENT FITTER) Neutrophil abs 7.9(H) 1.5 - 6.5 K/cumm Imm gran abs 0.0 0.0 - 0.1 K/cumm [facility] Lymphocyte abs 0.9 0.8 - 3.3 K/cumm [facility] Monocyte abs 0.6 0.2 - 0.8 K/cumm [facility] Eosinophil abs 0.0 0.0 - 0.5 K/cumm [facility] Basophil abs 0.0 0.0 - 0.1 K/cumm [facility] Neutrophil pct 83.7 % [facility] Comment: Interpretive Data Percent cell count reference ranges are not reported, since discordance with absolute values may lead to misinterpretation of CBC data. Current Interpretive Data was last revised on 2017. Imm gran pct 0.3 % [facility] Comment: Interpretive Data Percent cell count reference ranges are not reported, since discordance with absolute values may lead to misinterpretation of CBC data. Current Interpretive Data was last revised on 2017. Lymphocyte pct 9.8 % [facility] Comment: Interpretive Data Percent cell count reference ranges are not reported, since discordance with absolute values may lead to misinterpretation of CBC data. Current Interpretive Data was last revised on 2017. Monocyte pct 5.9 % [facility] Comment: Interpretive Data Percent cell count reference ranges are not reported, since discordance with absolute values may lead to misinterpretation of CBC data. Current Interpretive Data was last revised on 2017. Eosinophil pct 0.0 % [facility] Comment: Interpretive Data Percent cell count reference ranges are not reported, since discordance with absolute values may lead to misinterpretation of CBC data. Current Interpretive Data was last revised on 2017. Basophil pct 0.3 % [facility] Comment: Interpretive Data Percent cell count reference ranges are not reported, since discordance with absolute values may lead to misinterpretation of CBC data. Current Interpretive Data was last revised on 2017. Blood 07/16/2024 10:2 3 AM GROUND SUPPORT EQUIPMENT FITTER 07/16/2024 10:26 AM GROUND SUPPORT EQUIPMENT FITTER us Nativid[facility] LAB BLOOD ORDERABLES Final R esult JOSE MANUEL [address] [facility] Department [place] [address] * CBC with auto differential (07/16/2024 10:23 AM GROUND SUPPORT EQUIPMENT FITTER) [facility] WBC 9.5 3.8 - 9.9 K/cumm Hgb 13.3 11.9 - 15.5 g/dL [facility] Hct 40.2 35.6 - 45.5 % [facility] Plt 260 150 - 400 K/cumm [facility] MPV 9.7 9.1 - 12.3 fL [facility] RBC 4.63 3.90 - 5.20 M/cumm [facility] MCV 86.8 81.3 - 96.4 fL [facility] MCH 28.7 27.1 - 33.3 pg [facility] MCHC 33.1 32.3 - 35.7 g/dL [facility] RDW CV 13.1 11.1 - 14.9 % [facility] RDW SD 41.1 35.7 - 48.1 fL [facility] NRBC abs 0.00 0.00 - 0.01 K/cumm [facility] Blood 07/16/2024 10:2 3 AM GROUND SUPPORT EQUIPMENT FITTER 07/16/2024 10:26 AM GROUND SUPPORT EQUIPMENT FITTER us Natividad FIGUER[facility] LAB BLOOD ORDERABLES Final R esult [facility] [address] [facility] [place] [address] * (ABNORMAL) Comprehensive metabolic panel (07/16/2024 10:23 AM GROUND SUPPORT EQUIPMENT FITTER) [facility] Sodium 132(L) 135 - 145 mmol/L Potassium, pl 3.7 3.3 - 4.9 mmol/L [facility] Chloride 97 97 - 110 mmol/L [facility] CO2 25 22 - 32 mmol/L [facility] Anion gap 10 2 - 15 mmol/L [facility] BUN 18 6 - 25 mg/dL [facility] Creatinine 1.39(H) 0.60 - 1.10 mg/dL [facility] Glucose 104 70 - 199 mg/dL [facility] Comment: Interpretive Data Fasting glucose >/= 126 mg/dl is diagnostic for diabetes. Fasting is defined as no caloric intake for at least 8 hours. Fasting glucose between 100 mg/dl to 125 mg/dl is diagnostic of prediabetes. In a patient with classic symptoms of hyperglycemia or hyperglycemic crisis, a random glucose >/= 200 mg/dl is diagnostic for diabetes. In the absence of unequivocal hyperglycemia, results should be confirmed by repeat testing. The classification and Diagnosis of Diabetes Diabetes Care 2021; 46: S19-S40. Current interpretive data was last revised 2022. Calcium 8.9 8.5 - 10.3 mg/dL [facility] Bilirubin, total 0.6 0.1 - 1.2 mg/dL [facility] Protein, pl 7.8 6.5 - 8.5 g/dL [facility] Albumin 4.0 3.5 - 5.0 g/dL [facility] Alk phos 74 40 - 130 Units/L [facility] ALT 21 7 - 45 Units/L [facility] AST 23 10 - 45 Units/L [facility] Blood 07/16/2024 10:2 3 AM GROUND SUPPORT EQUIPMENT FITTER 07/16/2024 10:26 AM GROUND SUPPORT EQUIPMENT FITTER us Natividad [facility] LAB BLOOD ORDERABLES Final R esult JOSE MANUEL [address] [facility] Department [place] [address] from Last 3 Months Insurance [facility] PL[facility] Care Teams Factory Maintenance Manager Relationship Specialty Start Date End Date No, Physician PCP - General 09/03/22
--- OUTSIDE RECORDS SUMMARY | 2024-09-23 13:17 | XMS_ITS | Clinical Summary ---
Author Organization [facility] Address [address] [place] [id number] Care Team Providers Care Surgery Aide Name Role Phone No, Physician Primary Care Provider Allergies No known active allergies Medications nitrofurantoin monohydrate (MACROBID) 100 mg capsuleIndicatio ns:Urinary Tract/Genitourin gisele Infection Take 1 capsule (100 mg total) by mouth 2 (two) times a day 10 capsule 09/03/2022 Active Encounters Date Type Department Care Team Description 07/16/2024 11:49 AM INSTALLMENT LOAN COLLECTOR - 07/16/2024 3:58 PM INSTALLMENT LOAN COLLECTOR Emergency [address] [phone] Syncope, unspecified syncope type (Primary Dx) Discharge Disposition: Discharge to home or self care from Last 3 Months Social History Tobacco Use Types Packs/Day Years [...] on file Legal Sex Female 6:35 PM INSTALLMENT LOAN COLLECTOR Gender Identity Not on file Sexual Orientation Not on file Last Filed Vital Signs Vital Sign Reading Time Taken Comments Blood Pressure 152/88 07/16/2024 3:54 PM INSTALLMENT LOAN COLLECTOR Pulse 90 07/16/2024 3:54 PM INSTALLMENT LOAN COLLECTOR Temperature 37 C (98.6 F) 07/16/2024 9:50 AM INSTALLMENT LOAN COLLECTOR Respiratory Rate 18 07/16/2024 3:54 PM INSTALLMENT LOAN COLLECTOR Oxygen Saturation 100% 07/16/2024 3:54 PM INSTALLMENT LOAN COLLECTOR Inhaled Oxygen Concentration - - Weight 63.5 kg (140 lb) 09/03/2022 4:08 PM CDT Height 154.9 cm (5' 1 ) 07/16/2024 9:50 AM INSTALLMENT LOAN COLLECTOR Body Mass Index - - Plan of Treatment Health Maintenance Due Date Last Done Comments Cervical Cancer Screening 1965 Colon Cancer Screening-Colonoscopy 1967 Depression Screening 1967 Hepatitis C Screening 1967 DTaP/Tdap/Td Vaccine (1 - Tdap) 08/11/1978 Hepatitis B Screening 08/11/1985 Regular Well Visit/Exam 18-64 08/11/1985 Zoster Vaccine (1 of 2) 08/11/2017 Breast Cancer Screening-Mammogram 08/08/2021 08/08/2020 Covid-19 Vaccine (2023-2 5 season) 2024 03/04/2023, 12/17/2020, 11/19/2020 Influenza Vaccine (Season Ended) 2025 03/04/2023, 02/10/2014 Pneumococcal vaccine <65 Aged Out No longer eligible based on patient's age to complete this topic Procedures Procedure Name Priority Date/Time Associated Diagnosis Comments CT CHEST PE W CONTRAST ED 2:41 PM INSTALLMENT LOAN COLLECTOR D-DIMER, QUANTITATIVE STAT 07/16/2024 1:46 PM INSTALLMENT LOAN COLLECTOR TROPONIN T HIGH-SENSITIVITY 2-HOUR Timed 07/16/2024 1:46 PM INSTALLMENT LOAN COLLECTOR XR CHEST 1 VIEW ED 07/16/2024 10:52 AM INSTALLMENT LOAN COLLECTOR ECG 12-LEAD STAT 07/16/2024 10:26 AM INSTALLMENT LOAN COLLECTOR EGFR STAT 07/16/2024 10:23 AM INSTALLMENT LOAN COLLECTOR DIFFERENTIAL AUTO STAT 07/16/2024 10: 23 AM INSTALLMENT LOAN COLLECTOR TROPONIN T HIGH-SENSITIVITY SERIES (BASELINE, 2HR, 4HR, 6HR) STAT 07/16/2024 10:23 AM INSTALLMENT LOAN COLLECTOR COMPREHENSIVE METABOLIC PANEL STAT 07/16/2024 10:23 AM INSTALLMENT LOAN COLLECTOR CBC WITH AUTO DIFFERENTIAL STAT 07/16/2024 10:23 AM INSTALLMENT LOAN COLLECTOR INFLUENZA A/B, RSV, AND COVID-19 PCR STAT 07/16/2024 10:23 AM INSTALLMENT LOAN COLLECTOR from Last 3 Months Results * CT Chest PE (CTA) W Contrast (07/16/2024 2:41 PM INSTALLMENT LOAN COLLECTOR) Anatomical Region Laterality Modality Body N/A Computed Tomogra phy 07/16/2024 3:13 PM INSTALLMENT LOAN COLLECTOR Narrative 07/16/2024 3:22 PM INSTALLMENT LOAN COLLECTOR EXAM DESCRIPTION: CT CHEST PE (CTA) W [...] Crystal Anglin M.D. AT T: Report ID: [id number] Reading Location: [place] [address] Procedure Note Crystal Anglin MD - 07/16/2024 [...] Crystal Anglin M.D. AT T: Report ID: [id number] Reading Location: [place] [address] [address] PROCEDURES Final Resu lt * Troponin T high-sensitivity 2-hour (07/16/2024 1:46 PM INSTALLMENT LOAN COLLECTOR) Trop T hs <6 <=14 ng/L Comment: Interpretive Data For further hscTnT resources including the diagnostic algorithm and an aid in interpretation, copy and paste this link: https://nrl.testcatalog.org/show/hsTrop Current Interpretive Data last revised 2020. Trop T hs delta See Comment ng/L JOSE MANUEL HARE Comment:Inappropriate collec tion time to report a delta. Trop T hs pct delta See Comment % JOSE MANUEL HARE Comment:Inappropriate collec tion time to report a delta. Trop T hs interp See Comment JOSE MANUEL Comment:Inappropriate collec tion time to report a delta. Blood 07/16/2024 1:46 PM INSTALLMENT LOAN COLLECTOR 07/16/2024 1:49 PM INSTALLMENT LOAN COLLECTOR Natividad FIGUEREDO LAB BLOOD ORDERABLES Final R esult Performing Organization Address [facility] Co de Phone Number JOSE MANUEL [address] [place] [address] * (ABNORMAL) D-dimer, quantitative (07/16/2024 1:46 PM INSTALLMENT LOAN COLLECTOR) D-Dimer 1,470(H) <=499 ng/mL FEU Comment: Interpretive [...] et al. Brit Med J. 2013;346:f2492. Huma et al. Annals Int Med. 2015;163:701-11. Current interpretive data was last revised on 2019. Blood 07/16/2024 1:46 PM INSTALLMENT LOAN COLLECTOR 07/16/2024 1:49 PM INSTALLMENT LOAN COLLECTOR us Natividad FIGUEREDO LAB BLOOD ORDERABLES Final R esult Performing Organization Address [facility] Co de Phone Number JOSE MANUEL [address] [place] [address] * XR Chest 1 View (07/16/2024 10:52 AM INSTALLMENT LOAN COLLECTOR) Anatomical Region Laterality Modality Body, Chest N/A Computed Radiogr aphy 07/16/2024 11:4 4 AM INSTALLMENT LOAN COLLECTOR Narrative 07/16/2024 11:45 AM INSTALLMENT LOAN COLLECTOR EXAM DESCRIPTION: XR CHEST 1 VIEW REASON [...] 11:45 AM - Electronically signed by Hans Hendrickson D.O. AP T: Report ID: [id number] Reading Location: [id number] Procedure Note Hans Hendrickson, DO - 07/16/2024 EXAM DESCRIPTION: XR CHEST [...] 11:45 AM - Electronically signed by Hans Hendrickson D.O. AP T: Report ID: [id number] Reading Location: [id number] us Natividad FIGUEREDO IMG XR PROCEDURES Final Resu lt * ECG 12 lead (07/16/2024 10:26 AM INSTALLMENT LOAN COLLECTOR) [facility] Ventricular Rate EKG/Min 80 BPM [facility] Atrial Rate 80 BPM [facility] PA-Interval (MSEC) 130 ms [facility] QRS-Interval (MSEC) 74 ms [facility] QT-Interval (MSEC) 378 ms [facility] QTc 435 ms [facility] P Lismore 50 degrees [facility] R [place]ismore 45 degrees [facility] T Lismore 52 degrees [facility] Diagnosis Normal sinus rhythm Normal ECG When compared with ECG of 03-SEP-2022 16:27, No significant change was found Confirmed by MARY ZHENG M.D. ([id number]) on 07/16/2024 8:08:16 PM [facility] 07/16/2024 10:2 6 AM INSTALLMENT LOAN COLLECTOR 07/16/2024 8:08 PM INSTALLMENT LOAN COLLECTOR Natividad FIGUEREDO ECG ORDERABLES Final Result Performing Organization Address [facility] Co de Phone Number [facility] * Troponin T high-sensitivity series (baseline, 2hr, 4hr, 6hr) (07/16/2024 10:23 AM INSTALLMENT LOAN COLLECTOR) [facility] Trop T hs <6 <=14 ng/L Comment: Interpretive Data For further hscTnT resources including the diagnostic algorithm and an aid in interpretation, copy and paste this link: https://nrl.testcatalog.org/show/hsTrop Current Interpretive Data last revised 2020. Blood 07/16/2024 10:2 3 AM INSTALLMENT LOAN COLLECTOR 07/16/2024 10:26 AM INSTALLMENT LOAN COLLECTOR us Natividad FIGUEREDO LAB BLOOD ORDERABLES Final R esult Performing Organization Address [facility] Co de Phone Number JOSE MANUEL [address] [facility] Department [place] [address] * Influenza A/B, RSV, and COVID-19 PCR Nasopharyngeal (07/16/2024 10:23 AM INSTALLMENT LOAN COLLECTOR) [facility] COVID-19 RNA Negative Negative Influenza A RNA Negative Negative [facility] Influenza B RNA Negative Negative [facility] RSV RNA Negative Negative [facility] Comment: Interpretive data: Testing performed by [facility]. This test is performed using the Odilo Xpert Xpress CoV-2/Flu/RSV plus assay. This is a multiplex, real-time reverse transcriptase PCR assay intended for the qualitative detection of nucleic acid from SARS-CoV-2, influenza A, influenza B, and respiratory syncytial virus. This assay has been cleared by the [place] Food and Drug administration. The performance characteristics have been verified by the [facility]. Results must be considered in the clinical context, and a negative result does not rule out infection. Interpretive Data last revised 2023 Nasopharyngeal 07/16/2024 10 :23 AM INSTALLMENT LOAN COLLECTOR 07/16/2024 10:26 AM INSTALLMENT LOAN COLLECTOR Narrative [facility] - 07/16/2024 11:24 AM INSTALLMENT LOAN COLLECTOR Is the Patient experiencing symptoms consistent with COVID?->Yes Natividad FIGUEREDO LAB MICROBIOLOGY - GENERAL O RDERABLES Final Result [facility] [address] [facility] [place] [address] * (ABNORMAL) eGFR (07/16/2024 10:23 AM INSTALLMENT LOAN COLLECTOR) [facility] eGFR 45(L) >=60 mL/min/1. 73 m2 Comment: [...] reviewed 2021. Blood 07/16/2024 10:2 3 AM INSTALLMENT LOAN COLLECTOR 07/16/2024 10:26 AM INSTALLMENT LOAN COLLECTOR us Natividad FIGUEREDO LAB BLOOD ORDERABLES Final R esult [facility] [address] [facility] [place] [address] * (ABNORMAL) Differential, auto (07/16/2024 10:23 AM INSTALLMENT LOAN COLLECTOR) Neutrophil abs 7.9(H) 1.5 - 6.5 K/cumm Imm gran abs 0.0 0.0 - 0.1 K/cumm [facility] Lymphocyte abs 0.9 0.8 - 3.3 K/cumm [facility] Monocyte abs 0.6 0.2 - 0.8 K/cumm [facility] Eosinophil abs 0.0 0.0 - 0.5 K/cumm [facility] Basophil abs 0.0 0.0 - 0.1 K/cumm [facility] Neutrophil pct 83.7 % [facility] Comment: Interpretive Data Percent cell count reference ranges are not reported, since discordance with absolute values may lead to misinterpretation of CBC data. Current Interpretive Data was last revised on 2017. Imm gran pct 0.3 % [facility] Comment: Interpretive Data Percent cell count reference ranges are not reported, since discordance with absolute values may lead to misinterpretation of CBC data. Current Interpretive Data was last revised on 2017. Lymphocyte pct 9.8 % [facility] Comment: Interpretive Data Percent cell count reference ranges are not reported, since discordance with absolute values may lead to misinterpretation of CBC data. Current Interpretive Data was last revised on 2017. Monocyte pct 5.9 % [facility] Comment: Interpretive Data Percent cell count reference ranges are not reported, since discordance with absolute values may lead to misinterpretation of CBC data. Current Interpretive Data was last revised on 2017. Eosinophil pct 0.0 % [facility] Comment: Interpretive Data Percent cell count reference ranges are not reported, since discordance with absolute values may lead to misinterpretation of CBC data. Current Interpretive Data was last revised on 2017. Basophil pct 0.3 % [facility] Comment: Interpretive Data Percent cell count reference ranges are not reported, since discordance with absolute values may lead to misinterpretation of CBC data. Current Interpretive Data was last revised on 2017. Blood 07/16/2024 10:2 3 AM INSTALLMENT LOAN COLLECTOR 07/16/2024 10:26 AM INSTALLMENT LOAN COLLECTOR Natividad FIGUEREDO LAB BLOOD ORDERABLES Final R sabrina Performing Organization Address [facility] Co de Phone Number [facility] [address] [facility] Department of Laboratories [place], [place] [id number] * CBC with auto differential (07/16/2024 10:23 AM INSTALLMENT LOAN COLLECTOR) Pathologist [facility] WBC 9.5 3.8 - 9.9 K/cumm Hgb 13.3 11.9 - 15.5 g/dL [facility] Hct 40.2 35.6 - 45.5 % [facility] Plt 260 150 - 400 K/cumm [facility] MPV 9.7 9.1 - 12.3 fL [facility] RBC 4.63 3.90 - 5.20 M/cumm [facility] MCV 86.8 81.3 - 96.4 fL [facility] MCH 28.7 27.1 - 33.3 pg [facility] MCHC 33.1 32.3 - 35.7 g/dL [facility] RDW CV 13.1 11.1 - 14.9 % [facility] RDW SD 41.1 35.7 - 48.1 fL [facility] NRBC abs 0.00 0.00 - 0.01 K/cumm [facility] Blood 07/16/2024 10:2 3 AM INSTALLMENT LOAN COLLECTOR 07/16/2024 10:26 AM INSTALLMENT LOAN COLLECTOR us Natividad FIGUEREDO LAB BLOOD ORDERABLES Final R leonelult [facility] [address] [facility] [place] [address] * (ABNORMAL) Comprehensive metabolic panel (07/16/2024 10:23 AM INSTALLMENT LOAN COLLECTOR) Sodium 132(L) 135 - 145 mmol/L Potassium, pl 3.7 3.3 - 4.9 mmol/L [facility] Chloride 97 97 - 110 mmol/L [facility] CO2 25 22 - 32 mmol/L [facility] Anion gap 10 2 - 15 mmol/L [facility] BUN 18 6 - 25 mg/dL [facility] Creatinine 1.39(H) 0.60 - 1.10 mg/dL [facility] Glucose 104 70 - 199 mg/dL [facility] Comment: Interpretive Data Fasting glucose >/= 126 [...] 2022. Calcium 8.9 8.5 - 10.3 mg/dL [facility] Bilirubin, total 0.6 0.1 - 1.2 mg/dL [facility] Protein, pl 7.8 6.5 - 8.5 g/dL [facility] Albumin 4.0 3.5 - 5.0 g/dL [facility] Alk phos 74 40 - 130 Units/L [facility] ALT 21 7 - 45 Units/L [facility] AST 23 10 - 45 Units/L [facility] Blood 07/16/2024 10:2 3 AM INSTALLMENT LOAN COLLECTOR 07/16/2024 10:26 AM INSTALLMENT LOAN COLLECTOR us Natividad FIGUEREDO LAB BLOOD ORDERABLES Final R esult JOSE MANUEL [address] [facility] [place] [address] from Last 3 Months Insurance [facility] CHOICE PLUS [facility] HMO/PPO Address: [place] [address] Care Teams Surgery Aide Relationship Specialty Start Date End Date No, Physician PCP - General 09/03/22
--- OUTSIDE RECORDS SUMMARY | 2024-09-23 13:17 | XMS_ITS | Clinical Summary ---
Author Organization [facility] Address [address] [facility] [place] [address] Care Team Providers Care Table Setter Name Role Phone Unavailable Primary Care Provider Unavailabl e Source Comments [facility],non-owned Affiliates and Associated Physician Practices is amultiple site organization consisting of ambulatory clinics and hospital sitesin [place], [place], [place] and [place]. This disclosure is being madepursuant to the Care Everywhere program and may not contain all information available regarding this patient. Last updated 18.[facility] Allergies No known active allergies Medications * This document contains information received from the source organization and may not represent a complete record from that organization. * Be aware that medications may not be up to date on this document. Alwaysverify current medications with the patient. FLUoxetine (PROZAC) 20 MG capsuleIndicati ons:Bipolar Mood Disorder Take 1 (one) capsule by mouth once daily Reasons: Manic-Depres john 30 capsule 11/06/2021 Active QUEtiapine (SEROQUEL) 50 MG tabletIndicatio ns:Bipolar Mood Disorder Take 1 (one) tablet by mouth at bedtime Reasons: Manic-Depres john 30 tablet 11/06/2021 Active Social History Tobacco Use Types Packs/Day Years Used Date Smoking Tobacco: Never Smokeless Tobacco: Never Alcohol Use Standard Drinks/Week Comments Never 0 (1 standard drink = 0.6 oz pur e alcohol) AUDIT-C Answer Date Recorded Q1: How often do you have a drink containing alcohol? Never 11/06/2021 Q2: How many drinks containi ng alcohol do you have on a typical day when you are drinking? Patient does not drink Q3: How often do you have si x or more drinks on one occasion? Never 11/06/2021 Comments No Sex and Gender Information Value Date Recorded Sex Assigned at Not on file Legal Sex Female 11:24 AM ONCOLOGY RESEARCH RN Gender Identity Not on file Sexual Orientation Not on file Last Filed Vital Signs Vital Sign Reading Time Taken Comments Blood Pressure 98/84 11/06/2021 3:45 PM CDT Pulse 74 11/06/2021 3:45 PM CDT Temperature 36.6 C (97.9 F) 11/06/2021 3:45 PM CDT Respiratory Rate 19 11/06/2021 3:45 PM CDT Oxygen Saturation - - Inhaled Oxygen Concentration - - Weight 59.9 kg (132 lb) 11/06/2021 3:45 PM CDT Height 165.1 cm (5' 5 ) 11/06/2021 3:45 PM CDT Body Mass Index 21.97 11/06/2021 3:45 PM CDT Plan of Treatment Health Maintenance Due Date Last Done Comments COLOGUARD (AGES 45-75) - COL ON CA SCREENING 1967 COLON MONITORING 1967 COLONOSCOPY - COLON CA SCREENING 1967 CT COLONOGRAPHY - COLON CA SCREENING 1967 Colorectal Cancer Screening 1967 FIT - COLON CA SCREENING 1967 FLEX SIG - COLON CA SCREENING 1967 LIPID TESTING 1967 PAP SMEAR 1967 HIV SCREENING 08/11/1982 HEPATITIS C SCREENING 08/07/1985 DTAP/TDAP/TD VACCINES (1 - Tdap) 08/11/1986 HEPATITIS B VACCINE (1 of 3 - 19+ 3-dose series) 08/11/1986 PNEUMOCOCCAL VACCINE 50+ (1 of 1 - PCV) 08/11/2017 ZOSTER VACCINE (1 of 2) 08/11/2017 MAMMOGRAM 08/08/2022 08/08/2020 COVID-19 VACCINE ( - 2023-2 5 season) 2024 DEPRESSION SCREENING 06/08/2024 INFLUENZA VACCINE (Season Ended) 2025 HIB VACCINE Aged Out No longer eligi ble based on patient's age to complete this topic HPV VACCINE Aged Out No longer eligi ble based on patient's age to complete this topic MENINGOCOCCAL (Group B) VACC INE SHARED DECISION-MAKING Aged Out No longer eligibl e based on patient's age to complete this topic MENINGOCOCCAL GROUPS A/C/Y/W VACCINE Aged Out No longer eligible b ased on patient's age to complete this topic Procedures Procedure Name Priority Date/Time Associated Diagnosis Comments MAMMO BILAT SCREENING Routine 08/08/2020 4:12 PM ONCOLOGY RESEARCH RN Breast cancer screening by mammogram from Last 3 Months or Most Recently Relevant to Health Maintenance Results * MAMMO BILAT SCREENING (08/08/2020 4:12 PM ONCOLOGY RESEARCH RN) Anatomical Region Laterality Modality Breast Bilateral Mammography 08/15/2020 11:3 0 AM ONCOLOGY RESEARCH RN Impressions 08/15/2020 12:53 PM ONCOLOGY RESEARCH RN IMPRESSION: 1. Asymmetry in the lateral posterior left breast on the craniocaudal view. 2. Asymmetry in the central left breast in the cranial caudal view. 3. Asymmetry in the superior left breast on the MLO view. 4. No suspicious findings in the right breast . RECOMMENDATION: Diagnostic left mammogram. If indicated at that time, left breast ultrasound will be performed. Patient will be contacted and scheduled to return for the additional imaging. BI-RADS CATEGORY 0: INCOMPLETE: NEED ADDITIONAL IMAGING EVALUATION. I, Dr. NACHO FLORES M.D. have personally reviewed and interpreted this examination/study. This report was electronically signed by NACHO FLORES M.D. on 08/15/2020 12:53 PM . Narrative 08/15/2020 12:53 PM ONCOLOGY RESEARCH RN EXAM: DIGITAL MAMMO BILAT SCREENING WITH 3-D AND WITH CAD DATE OF EXAM: 08/09/2020 8:45 AM HISTORY: Screening. RISK ASSESSMENT CALCULATION: Patient completed a breast cancer risk assessment during her appointment. Based upon the information she provided and her mammographic breast density, her lifetime risk of developing breast cancer is 10 % (Average Risk <15%; Intermediate / Moderate Risk 15-19%; High Risk > 20%). COMPARISON: No prior imaging studies available for comparison. This the patient's baseline exam. TECHNIQUE: Tomosynthesis (3-D) and reconstructed C - view (synthetic 2-D) images acquired and reviewed in the bilateral craniocaudal and mediolateral oblique projections. Images reviewed with CAD. BREAST COMPOSITION: Category C: Heterogeneously dense, which may obscure small masses. FINDINGS: Right breast: No suspicious microcalcifications, focal dominant masses, or areas of architectural distortion on mammography. Left breast: An asymmetry is noted in the outer left breast on craniocaudal view 8 cm from the nipple (teressa slice 23/82). A second asymmetry is noted along the nipple line on craniocaudal view approximately 5 cm from the nipple (teressa slice 32/82). An asymmetry on MLO view in the left breast is seen 6 cm from the nipple (teressa slice 30/86). No suspicious microcalcifications or focal dominant masses are identified. us Provider Unknown MAMMO ORDERABLES Final Result from Last 3 Months or Most Recently Relevant to Health Maintenance
--- OUTSIDE RECORDS SUMMARY | 2024-09-23 13:18 | XMS_ITS | Patient Health Record ---
Author Organization [facility] Address [address] [place] [address] Care Team Providers Care Spectroscopist Name Role Phone Robyn Shen Primary Care Provider Chanel Bhatia Unavailable [phone] Allergies No Known Allergies Reason For Referral No Information Medications Medication SIG (Take, Route, Frequency, Duration) [...] Once a day for 30 days Active QUEtiapine Fumarate 200 [...] with others, in a hotel, in a long-term, living outside on the street, on a beach, or in a park) Are you worried about losing your housing? 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 Stress is when someone feels tense, nervous, anxious, or can\t sleep at night because their mind is troubled Somewhat In the past year have you sp ent more than 2 nights in a row in a half-way, [facility]cc, usp center, or juvenile correctional facility? Yes What was your release date? 01/05/2023 Are you a refugee? No What country are you from? [place] Do you feel physically and e motionally safe where you currently live? Yes In the past year, have you b een afraid of your partner or ex-partner? No PRAPARE Score: 9 Section Notes: Reviewed PDMP Reviewed PDMP Reviewed PDMP Reviewed PDMP Reviewed PDMP Reviewed PDMP Reviewed PDMP Reviewed PDMP Reviewed PDMP Problems Problem Type SNOMED Code ICD Code Onset Dates Problem Status W/U Status Risk Notes Problem Bipolar 1 disorder (328944341) Bipolar 1 disorder (F31.9) Active confirmed Vital Signs Heart Rate 88 /min 10/14/2023 Blood pressure diastolic 82 mm Hg 10/14/2023 Oximetry 98 % 10/14/2023 Height 57 in 10/14/2023 Blood pressure systolic 116 mm Hg 10/14/2023 Weight 150 lb 2 oz lbs 10/14/2023 BMI 32.48 kg/m2 10/14/2023 Encounters Encounter Location Date Provider Diagnosis [address] [place] [address] 10/14/2023 Chanel Bhatia Nutritional counseling Z71.3 and Bipolar 1 disorder F31.[address] [place] [address] 10/13/2023 Chanel Bhatia Assessments Encounter Date Diagnosis (ICD Code) Assessment [...] May also contact the 24-hour crisis hotline ([facility]), refer to the closest emergency room or [...] use/abuse and/or drinking alcohol. Plan Of Treatment No Information Insurance Providers Payer Name Payer Address Payer Phone Subscriber Number Group Number Insured Name Patient Relationship to Insured Coverage Start Date Coverage End Date [facility] [address] [place] [address] [id number] Martina Smart Self - patient is the insured 4 MEDICAID [address] [facility] [place] [address] [id number] Martina Smart Self - patient is the insured 3 MEDICAID FFS [address] [place] [address] [id number] Martina Smart Self - patient is the insured 3 3 Medical (General) History Medical History History ICD Code depression bipolar disorder Surgical History Surgery Date(Month/Year) section 22yrs Hospitalization History Reason Date(Month/Year) inpatient psychiatric hospitalization 20 23
--- OUTSIDE RECORDS SUMMARY | 2024-09-23 13:18 | XMS_ITS ---
Author Organization [facility] Address [address] [place] [address] Care Team Providers Care Rn Spine Name Role Phone Robyn Shen Primary Care Provider Chanel Bhatia [phone] Medications Medication SIG (Take, Route, Fr equency, Duration) Notes Start Date End Date Status Wellbutrin XL 150 MG 2 tablets in AM Ora lly Once a day for 30 days Active lamoTRIgine 100 MG TAKE 1 TABLET BY MALKA TH EVERY DAY AT BEDTIME. DISCONTINUE IF RASH OCCURS. for 30 days Active Social History Sex Assigned At : Social History Observation Description Sex Assigned At Female Encounters Encounter Location Date Provider Diagnosis [address] [address] 09/23/2023 Chanel Bhatia Bipolar 1 disorder F31.9 Assessments Encounter Date Diagnosis (ICD Code) Assessment Notes Treatment Notes Treatment Clinical Notes Section Notes 09/23/2023 Bipolar 1 disorder (ICD-10 - F31.9) Plan Of Treatment Medication Medication Name Sig Start Date Stop Date Notes Wellbutrin XL 150 MG 2 tablets in AM Ora lly Once a day for 30 days lamoTRIgine 100 MG TAKE 1 TABLET BY MALKA TH EVERY DAY AT BEDTIME. DISCONTINUE IF RASH OCCURS. for 30 days Progress Notes * Marcella SMART:11/1965 (58 yo F)Acc No.[id number]:09/23/2023 Patient: Logan MOODY Martina OSHEA :1965 A ge:58 Y S ex:Female Address:[address] [place], [address] * Refills Refill lamoTRIgine Tablet, 100 MG, 30, TAKE 1 TABLET BY MOUTH EVERY DAY AT BEDTIME. DISCONTINUE IF RASH OCCURS., 30 days, Refills=0 Refill Wellbutrin XL Tablet Extended Release 24 Hour, 150 MG, Orally, 60 Tablet, 2 tablets in AM, Once a day, 30 days, Refills=0 * true * Date: Generated for Poonam talamantes/Mandy/Dollyitting on: 0 09/23/2024 01:17 PM CDT
== END 2024-09-23 13:11 | disposition home or self-care (01) ==
LOC: ANHIMG 13:15
PROVIDERS: PCP Physician Assistant; Visit Provider Physician Assistant
DX: N63.11 Unspecified lump in the right breast, upper outer quadrant (principal)
CPT/HCPCS: 76641; 77061; 77065; G0279